=== PATIENT | female | born 1940 | race Caucasian/White ===

== ENCOUNTER 2017-02-23 20:48 | Emergency (ER) | payer MEDICARE, OTHER ==
[~2017-02-23] VITALS: Ht 160 cm; Wt 80.0 kg
[~2017-02-23 20:48] MED LIST: ASPI-650 PO; BENZ0.5T3 PO; CYAN500T46 PO; DIVA-16 PO; ERGO50007 PO; FAMO20TA18 PO; FURO20TA3 PO; LEVO150T67 PO; LORA-444 PO; METO5TAB65 PO; POTA20TA78 PO; RISP2TAB93 PO; SPIR25TA67 PO; VALS80TA2 PO
[2017-02-23 21:03] VITALS: Ht 160 cm; Wt 80.0 kg
[2017-02-23] MEDS ORDERED: SOD CHLORIDE 0.9% 500 ML IV STA (21:04)
[2017-02-23 21:25] LABS: ADD SCAN DIFF NO
[2017-02-23 21:45] LABS: BASOPHILS % 0.5 % (0.0-2.0); EOSINOPHILS # 0.2 10^3/ul (0.0-0.5); EOSINOPHILS % 2.7 % (0.0-7.0); HEMATOCRIT 39.8 % (37.0-47.0); HEMOGLOBIN 13.4 g/dl (12.0-16.0); LYMPHOCYTES # 1.4 10^3/ul (0.8-2.9); LYMPHOCYTES % 24.6 % (15.0-51.0); MEAN CORPUSCULAR HEMOGLOBIN 32.2 pg (29.0-33.0); MEAN CORPUSCULAR HGB CONC 33.7 g/dl (32.0-37.0); MEAN CORPUSCULAR VOLUME 95.7 fl (82.0-101.0); MEAN PLATELET VOLUME 9.4 fl (7.4-10.4); MONOCYTE # 0.3 10^3/ul (0.3-0.9); MONOCYTES % 6.1 % (0.0-11.0); NEUTROPHIL # 3.7 10^3/ul (1.6-7.5); NEUTROPHILS % 65.6 % (39.0-77.0); PLATELET COUNT 108 10^3/UL (140-415); RED BLOOD COUNT 4.16 10^6/ul (4.20-5.40); RED CELL DISTRIBUTION WIDTH 12.8 % (11.5-14.5); WHITE BLOOD COUNT 5.6 10^3/ul (4.8-10.8)
--- NOTE | 2017-02-23 21:55 | RADRPT ---
PROCEDURE: CT Brain without contrast. CLINICAL INDICATION: Neurologic deficit TECHNIQUE: A CT of the brain was performed on multidetector high-resolution CT scanner utilizing a xial sections from the skull base through the vertex without contrast. One or more of the following dose reduction techniques were used: Automated exposure control, Adjustment of the mA and/or kV acc ording to patient size, and/or use of iterative reconstruction technique. DOSE: CTDI = 44 mGy and the DLP = 720 mGy-cm. COMPARISON: None available FINDINGS: No acute intracranial hemorrhage, significant mass effect or midline shift. The pandya-white different iation is grossly preserved. Prominence of the cortical sulci and ventricles are related to mild cerebral volume loss. Vascular calcifications. No significant opacification of the visualized paranasal sinuses or mastoids. IMPRESSION: No acute intracranial findings. Mild volume loss. Intracranial atherosclerosis. RPTAT: AA .Moses Waddell MD, MD Date Time Electronically viewed and signed by .Moses Waddell MD, on 02/23/2017 21:54 .T/
[2017-02-23 21:58] LABS: ADD UMIC NO; URINE BILIRUBIN (Dip) NEGATIVE (NEGATIVE); URINE BLOOD (Dip) NEGATIVE (NEGATIVE); URINE COLOR LT. YELLOW (YELLOW); URINE GLUCOSE (Dip) >=1000 % (NEGATIVE); URINE KETONES (Dip) NEGATIVE (NEGATIVE); URINE LEUKOCYTE ESTERASE (Dip) NEGATIVE (NEGATIVE); URINE NITRITE (Dip) NEGATIVE (NEGATIVE); URINE TOTAL PROTEIN (Dip) NEGATIVE (NEGATIVE); URINE UROBILINOGEN (Dip) 0.2 E.U./dL (0.1-1.0)
[2017-02-23 22:02] LABS: CHLORIDE 102 mmol/L (97-110); POTASSIUM 4.2 mmol/L (3.5-5.1); SODIUM 138 mmol/L (135-144)
[2017-02-23 22:04] LABS: ANION GAP 16 (8-16); ASPARTATE AMINO TRANSFERASE 40 IU/L (15-46); BILIRUBIN,INDIRECT 0.4 mg/dl (0-1.1); BILIRUBIN,TOTAL 0.4 mg/dl (0.2-1.3); CARBON DIOXIDE 24 mmol/L (21-31); CREATININE 1.04 mg/dl (0.44-1.00)
[2017-02-23 22:05] LABS: ALANINE AMINOTRANSFERASE 27 IU/L (13-69); ALBUMIN/GLOBULIN RATIO 1.11; ALKALINE PHOSPHATASE 73 IU/L (42-121); BLOOD UREA NITROGEN 17 mg/dl (7-20); CALCIUM 9.2 mg/dl (8.4-10.2); GLUCOSE 323 mg/dl (70-220); TOTAL PROTEIN 7.6 g/dl (6.1-8.1)
[2017-02-23 22:06] LABS: ACETAMINOPHEN < 10.0 ug/ml (10.0-30.0)
[2017-02-23 22:17] LABS: VALPROATE < 10 ug/ml (50-100)
[2017-02-23 22:53] LABS: T3 UPTAKE 31.6 % (23.5-40.5)
[2017-02-23 23:00] VITALS: TEMP 98.2
[2017-02-23] MEDS ORDERED: SOD CHLORIDE 0.9% 1,000 ML IV ONE (23:30)
--- NOTE | 2017-02-23 23:41 | ERD ---
ER Documentation Chief Complaint Date/Time DATE: 02/23/17 TIME: 23:35 Chief Complaint sent from facility for droopy left eye HPI 76-year-old female sent for a reported "droopy eye" and visual disturbances. Erin herself is awake alert and oriented and says that she occasionally has blurred vision but did not have any today and does not have any now. She feels completely well. She denies any weakness or numbness in her entire body. She also has no pain, chest or otherwise. Denies shortness of breath, nausea and vomiting. Has not felt any fevers or chills. She knows that she was sent because they told there was something wrong with her eye but she does not believe there is anything wrong with her eye. ROS All systems reviewed and are negative except as per history of present illness. Medications Home Meds Reported Medications Lorazepam* (Ativan*) 2 Mg Tablet, 2 MG PO HS PRN 10/24/12 Cyanocobalamin* (Vitamin B12*) 500 Mcg Tab, 1000 MCG PO DAILY 10/24/12 Risperidone* (Risperdal*) 2 Mg Tablet, 2 MG PO BID 10/24/12 Ergocalciferol (Vitamin D) 50,000 Unit Capsule, 47629 UNIT PO WEEKLY 10/24/12 Potassium Chloride (Potassium Chloride) 20 Meq Tab.prt.sr, 20 MEQ PO DAILY 10/24/12 Valsartan* (Diovan*) 80 Mg Tablet, 80 MG PO DAILY 10/24/12 Metolazone* (Metolazone*) 5 Mg Tablet, 5 MG PO 30 MINS BEFORE LASIX 10/24/12 Spironolactone* (Aldactone*) 25 Mg Tablet, 25 MG PO DAILY 10/24/12 Levothyroxine Sodium* (Levothyroxine Sodium*) 150 Mcg Tablet, 150 MCG PO DAILY 10/24/12 Aspirin (Aspirin) 81 Mg Tablet, 81 MG PO DAILY 10/24/12 Famotidine* (Famotidine*) 20 Mg Tablet, 20 MG PO DAILY 10/24/12 Benztropine Mesylate* (Benztropine Mesylate*) 0.5 Mg Tablet, 0.5 MG PO BID 10/24/12 Furosemide* (Furosemide*) 20 Mg Tablet, 20 MG PO DAILY 10/24/12 Divalproex Sodium* (Divalproex Sodium*) 500 Mg Tablet.dr, 500 MG PO BID 10/24/12 Allergies Allergies: Coded Allergies: No Known Allergy (Unverified , 10/24/12) PMhx/Soc Hx Respiratory Disorders: Yes (COPD, ) Hx Cardiac Disorders: Yes (HYPERLIPEDEMIA, HTN) Hx Psychiatric Problems: Yes (psychotic disorder) Hx Miscellaneous Medical Probl: Yes (hypothyroidism, GERD) Hx Alcohol Use: No Hx Substance Use: No Hx Tobacco Use: No Smoking Status: Never smoker Physical Exam Vitals Vital Signs Date Time Temp Pulse Resp B/P Pulse Ox O2 Delivery O2 Flow Rate FiO2 02/23/17 23:48 63 18 131/53 99 Room Air 02/23/17 23:00 98.2 63 16 122/74 96 Room Air 02/23/17 21:03 98.2 67 19 131/54 97 Physical Exam Const: [] No distress Head: Atraumatic Eyes: Normal Conjunctiva, EOMI, PERRLA, funduscopic exam normal, no surrounding inflammation ENT: Normal External Ears, Nose and Mouth. Mucous membranes of the mouth moist. Neck: Full range of motion..~ No meningismus. Resp: Clear to auscultation bilaterally Cardio: Regular rate and rhythm, no murmurs Abd: Soft, non tender, non distended. Normal bowel sounds Skin: No petechiae or rashes Back: No midline or flank tenderness Ext: No cyanosis, or edema Neur: Awake and alert and oriented 3, patient knows her name or location the name of her long-term as well as that the month is January, cranial nerves II through XII intact, no cerebellar deficits. Gait not tested Psych: Normal Mood and Affect Result Diagram: 02/23/17210902/23/172109 Results 24 hrs Laboratory Tests Test 02/23/17 21:10 02/23/17 21:24 02/23/17 21:30 White Blood Count 5.610^3/ul Red Blood Count 4.1610^6/ul Hemoglobin 13.4g/dl Hematocrit 39.8% Mean Corpuscular Volume 95.7fl Mean Corpuscular Hemoglobin 32.2pg Mean Corpuscular Hemoglobin Concent 33.7g/dl Red Cell Distribution Width 12.8% Platelet Count 65080^3/UL Mean Platelet Volume 9.4fl Neutrophils % 65.6% Lymphocytes % 24.6% Monocytes % 6.1% Eosinophils % 2.7% Basophils % 0.5% Nucleated Red Blood Cells % 0.0/100WBC Neutrophils # 3.710^3/ul Lymphocytes # 1.410^3/ul Monocytes # 0.310^3/ul Eosinophils # 0.210^3/ul Basophils # 0.010^3/ul Nucleated Red Blood Cells # 0.010^3/ul Sodium Level 138mmol/L Potassium Level 4.2mmol/L Chloride Level 102mmol/L Carbon Dioxide Level 24mmol/L Anion Gap 16 Blood Urea Nitrogen 17mg/dl Creatinine 1.04mg/dl Glucose Level 323mg/dl Lactic Acid Level 2.6mmol/L Calcium Level 9.2mg/dl Total Bilirubin 0.4mg/dl Direct Bilirubin 0.00mg/dl Indirect Bilirubin 0.4mg/dl Aspartate Amino Transf (AST/SGOT) 40IU/L Alanine Aminotransferase (ALT/SGPT) 27IU/L Alkaline Phosphatase 73IU/L Total Protein 7.6g/dl Albumin 4.0g/dl Globulin 3.60g/dl Albumin/Globulin Ratio 1.11 Free Thyroxine Index 4.52ug/ml Thyroxine (T4) 14.3ug/dl Triiodothyronine (T3) Uptake 31.6% Acetaminophen Level < 10.0ug/ml Valproic Acid (Depakene) Level < 10ug/ml Bedside Glucose 294mg/dL Urine Color LT. YELLOW Urine Clarity CLEAR Urine pH 6.0 Urine Specific Cornish 1.015 Urine Ketones NEGATIVE Urine Nitrite NEGATIVE Urine Bilirubin NEGATIVE Urine Urobilinogen 0.2 E.U./dL Urine Leukocyte Esterase NEGATIVE Urine Hemoglobin NEGATIVE Urine Glucose >=1000% Urine Total Protein NEGATIVE Current Medications Medications (Trade) Dose Ordered Sig/Marleny Route PRN Reason Start Time Stop Time Status Last Admin Dose Admin Sodium Chloride 500 ml @ 500 mls/hr Q1H STAT IV 02/23/17 21:04 02/23/17 22:03 DC 02/23/17 21:17 Sodium Chloride (NS) 1,000 ml @ 1,000 mls/hr Q1H ONCE IV 02/23/17 23:30 02/24/17 00:29 02/23/17 23:41 Trimethobenzamide HCl (Tigan) 200 mg ONCE ONCE IM 02/24/17 00:00 02/24/17 00:00 DC Lorazepam (Ativan) 1 mg ONCE ONCE IV 02/24/17 00:00 02/24/17 00:00 DC Procedures/MDM Asymptomatic patient with reported visual symptoms with none now. Patient has had no neurological deficits and is alert and oriented 3 and still has no neurological deficits I doubt that this is in any way a TIA. Incidentally the patient was found to have some mild dehydration with mild lactic acidosis and mild renal insufficiency when compared to her creatinine values from her EMR on a prior visit. She was hydrated with 1.5 L of normal saline which will also help treat her hyperglycemia. She is returning to her care home facility as she wishes. Recommending primary care follow-up as well as an ophthalmology referral. Also included are the laboratories with the patient did show that she was not being properly hydrated and her diabetic regimen may need adjustment. She has a normal white count with no signs of infection. EKG interpretation: Normal sinus rhythm rate of 62, left bundle branch block, no ST or T-wave changes concerning for acute ischemia, left axis deviation. security monitor interpretation: Normal sinus rhythm without arrhythmia CT head interpretation: I see no acute process. I see no hemorrhage, no mass- effect no midline shift no skull fracture. Departure Diagnosis: Primary Impression: Renal insufficiency, mild Additional Impressions: Vision changes Hyperglycemia Dehydration, mild Condition: Stable Patient Instructions: Hyperglycemia (High Blood Sugar), Understanding Vision Problems Additional Instructions: Call your primary care doctor TOMORROW for an appointment during the next 1-2 days. Get a referral for an opthomologist. See the doctor sooner or return here if your condition worsens before your appointment time. SMILEY TSE DO Feb 23, 2017 23:41
[2017-02-23 23:48] VITALS: BP 131/53; PULSE 63; RESP 18
[2017-02-24] MEDS ORDERED: TRIMETHOBENZAMIDE 100 MG/ML VIAL IM ONE
[2017-02-24] MEDS ORDERED: LORAZEPAM 2 MG INJ IV ONE
== END 2017-02-23 23:55 | disposition home or self-care (01) ==
LOC: E/R 20:48
DX: N28.9 Disorder of kidney and ureter, unspecified (principal); H53.8 Other visual disturbances; R73.9 Hyperglycemia, unspecified; E86.0 Dehydration; I10 Essential (primary) hypertension; J44.9 Chronic obstructive pulmonary disease, unspecified; E03.9 Hypothyroidism, unspecified; R93.0 Abnormal findings on diagnostic imaging of skull and head, not elsewhere classified; Z79.82 Long term (current) use of aspirin
CPT/HCPCS: 36415; 70450; 80053; 80164; 80306; 81003; 82962; 83605; 84436; 84479; 85025; 93005; 99285; J7030; J7040; J3250